=== PATIENT | female | born 1995 | race Caucasian/White ===

== ENCOUNTER 2020-02-07 14:08 | Emergency (ER) | payer SELFPAY ==
[~2020-02-07] VITALS: Ht 170.2 cm; Wt 56.7 kg
--- NOTE | 2020-02-07 14:28 | NUR ---
CALLED [facility] [employer] [address] A UNIT WILL BE SENT OUT.
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
[2020-02-07] MEDS ORDERED: ONDANSETRON HCL/PF 4 MG/2 ML VIAL IVP ONE (15:00)
[2020-02-07] MEDS ORDERED: IV NS 0.9% 1,000 ML BAG IV ONE (15:00)
[2020-02-07] MEDS ORDERED: ONDANSETRON HCL/PF 4 MG/2 ML VIAL ONE (15:15)
[2020-02-07] MEDS ORDERED: clonazePAM 1 MG TABLET ONE (15:16)
[2020-02-07 15:18] LABS: HEMOGLOBIN 13.6 g/dL (11.5-14.8); MONOCYTES # (AUTO) 0.1 /CMM (0.1-1.30)
[2020-02-07 15:23] LABS: BASOPHILS % (AUTO) 0.9 % (0.0-2.0); EOSINOPHILS % (AUTO) 0.6 % (0.0-6.0); HEMATOCRIT 39 % (33-45); LYMPHOCYTES # (AUTO) 1.2 /CMM (0.8-4.8); LYMPHOCYTES % (AUTO) 49.9 % (20.0-44.0); MEAN CORPUSCULAR HGB CONC 35 g/dl (31.0-36.0); MEAN CORPUSCULAR VOLUME 94 fL (82-100); MONOCYTES % (AUTO) 4.6 % (2.0-12.0); PLATELET COUNT (AUTO) 307 /CMM (150-450); RED BLOOD CELL COUNT(AUTO) 4.19 MIL/uL (4.0-5.2); WHITE BLOOD COUNT (AUTO) 2.4 K/uL (4.3-11.0)
[2020-02-07 15:29] LABS: CALCIUM, SERUM 8.3 mg/dL (8.5-10.1); CREATININE 0.7 mg/dL (0.6-1.3); POTASSIUM 3.7 mmol/L (3.5-5.1)
[2020-02-07] MEDS ORDERED: clonazePAM 1 MG TABLET PO ONE (15:30)
[2020-02-07 15:36] LABS: ALBUMIN 4.2 g/dL (3.4-5.0); BILIRUBIN,DIRECT 0.1 mg/dL (0.0-0.2); BILIRUBIN,TOTAL 0.2 mg/dL (0.2-1.0); TOTAL PROTEIN, SERUM 7.5 g/dL (6.4-8.2)
--- NOTE | 2020-02-07 16:22 | NUR ---
[employer] UNIT AT BEDSIDE FOR INTERVIEW.
--- NOTE | 2020-02-07 16:46 | NUR ---
[employer] UNIT [id number] OFFICER ASHLIE ELLIOTT#[id number], OFFICER NABEEL [id number]
--- NOTE | 2020-02-07 17:08 | NUR ---
OFFICER SPOKE TO DR. CASH. IV removed. Catheter intact and site benign. Pressure and 4x4 applied to site. No bleeding noted. Patient discharged to PD in stable condition. Written and verbal after care instructions given. Patient verbalizes understanding of instruction.
[2020-02-07 17:10] VITALS: BP 139/80
== END 2020-02-07 17:11 | disposition home or self-care (01) ==
LOC: ER 14:08
DX: T76.21XA Adult sexual abuse, suspected, initial encounter (principal); F10.129 Alcohol abuse with intoxication, unspecified; F15.10 Other stimulant abuse, uncomplicated; R42 Dizziness and giddiness; D72.819 Decreased white blood cell count, unspecified; F41.9 Anxiety disorder, unspecified; F90.9 Attention-deficit hyperactivity disorder, unspecified type; Z98.890 Other specified postprocedural states; Y90.8 Blood alcohol level of 240 mg/100 ml or more
CPT/HCPCS: 36415; 80048; 80076; 80305; 80307; 83690; 83735; 84702; 85025; 93005; 96361; 96374; 99284; J2405; J7030; G0480